=== PATIENT | female | born 1995 | race Caucasian/White ===

== ENCOUNTER 2016-04-05 07:39 | Emergency (ER) | payer OTHER ==
[~2016-04-05] VITALS: Ht 172.7 cm; Wt 56.8 kg
[2016-04-05 07:43] VITALS: BP 115/70; PULSE 93; TEMP 98.2
[2016-04-05] MEDS ORDERED: DEPO-PROVER150 MG/M1 IM (07:47)
[2016-04-05] MEDS ORDERED: WELLBUTRIN SR150 M1 PO (07:47)
[2016-04-05] MEDS ORDERED: LUVOX100 MG PO (07:47)
[2016-04-05] MEDS ORDERED: NORCO 325 MG-51 TAB PO (08:20)
== END 2016-04-05 08:35 | disposition home or self-care (01) ==
LOC: COL.ER 07:39
DX: S29.012A Strain of muscle and tendon of back wall of thorax, initial encounter (principal); X50.0XXA Overexertion from strenuous movement or load, initial encounter